=== PATIENT | female | born 1995 ===

== ENCOUNTER 2024-11-06 05:25 | Day surgery (SDC) | payer OTHER ==
[2024-10-30 07:57] LABS: BASO % 1.4 % (0.1-1.2); EOS % 4.7 % (0.7-7.0); HEMATOCRIT 38.4 % (34.1-44.9); HEMOGLOBIN 12.6 g/dL (11.2-15.7); LYMPH # 2.04 (1.18-3.74); MEAN CORPUSCULAR HEMOGLOBIN 26.4 pg (25.6-32.2); MONO # 0.42 (0.24-0.82); MONO % 9.9 % (4.7-12.5); NEUT # 1.52 (1.56-6.13); NEUT % 35.8 % (34.0-71.1); PLATELET COUNT 352 K/uL (163-369); RED BLOOD COUNT 4.78 M/uL (3.93-5.22); RED CELL DISTRIBUTION WIDTH 14.4 % (11.6-14.4)
[2024-10-30 08:25] LABS: ALBUMIN 3.6 gm/dL (3.4-5.0); BILIRUBIN TOTAL 0.51 mg/dL (0.3-1.2); CALCIUM 9.2 mg/dL (8.5-10.1); CREATININE SERUM 0.64 mg/dL (0.55-1.02); GFR 108.23; GLOBULINA 3.6 G/DL (2.4-3.5); POTASSIUM 3.76 mEq/L (3.5-5.1); TOTAL PROTEIN 7.2 gm/dL (6.4-8.2)
[2024-10-30 08:39] LABS: INR < 0.93; PARTIAL THROMBOPLASTIN TIME 26.4 SECONDS (22.0-34.0); PROTHROMBIN TIME 10.2 SECONDS (9.0-11.5)
[2024-10-30 08:42] LABS: PH,URINE 5.5 (5.0-8.0); URINE APPEARANCE Cloudy; URINE BILIRRUBIN Negative (NEGATIVE); URINE BLOOD Negative; URINE COLOR Yellow; URINE GLUCOSE Negative (NEGATIVE); URINE KETONE Trace (NEGATIVE); URINE LEUKOCYTE Negative; URINE NITRATE Negative; URINE PROTEIN Trace (NEGATIVE)
[2024-10-30 08:48] VITALS: BP 103/69
[2024-10-30 08:50] LABS: URINE EPITHELIAL CELLS 145.4 uL (0.0-38.8); URINE RBC 5.7 uL (0.0-20.8); URINE WBC 37.9 uL (0.0-23.2)
[2024-10-30 09:21] LABS: URINE BACTERIA > 9821.5 uL (0.0-1933); URINE CAST 0.44 uL (0.0-1.40)
[~2024-11-06] VITALS: Ht 160 cm; Wt 99.8 kg
[2024-11-06] MEDS ORDERED: CEFAZOLIN SODIUM 1,000 MG VIAL ONE (06:50)
[2024-11-06] MEDS ORDERED: POVIDONE-IODINE 118 ML BOTT TOP ONE (06:57)
[2024-11-06] MEDS ORDERED: CHLORHEXIDINE GLUCONATE 120 ML BOTTLE TOP ONE (08:42)
[2024-11-06] MEDS ORDERED: DOXYCYCLINE HY100 M2 PO (09:14)
[2024-11-06] MEDS ORDERED: IBU600 MG PO (09:14)
== END 2024-11-06 13:25 | disposition home or self-care (01) ==
LOC: CIR.AMB 05:25
PROVIDERS: ATTEND Obstetrics & Gynecology
DX: D25.0 Submucous leiomyoma of uterus (principal); N84.0 Polyp of corpus uteri; N92.0 Excessive and frequent menstruation with regular cycle